=== PATIENT | male | born 1990 | race African-American/Black ===

== ENCOUNTER 2024-05-19 12:03 | Emergency (ER) | payer OTHER ==
[~2024-05-19] VITALS: Ht 177.8 cm; Wt 69.2 kg
[2024-05-19 12:16] VITALS: BP 116/76; PULSE 102; RESP 19; TEMP 98.4; O2SAT 98
[2024-05-19 14:10] VITALS: BP 141/60; PULSE 78; RESP 18; TEMP 97.3; O2SAT 98
== END 2024-05-19 14:12 | disposition home or self-care (01) ==
LOC: MED 12:03
DX: S29.9XXA Unspecified injury of thorax, initial encounter (principal); M25.512 Pain in left shoulder; M25.511 Pain in right shoulder; V49.9XXA Car occupant (driver) (passenger) injured in unspecified traffic accident, initial encounter; Y93.89 Activity, other specified; Y92.89 Other specified places as the place of occurrence of the external cause; Y99.8 Other external cause status
CPT/HCPCS: 71045; 99283